=== PATIENT | male | born 1990 | race Caucasian/White ===

== ENCOUNTER 2016-12-30 02:50 | Emergency (ER) | payer OTHER ==
[~2016-12-30] VITALS: Ht 172.7 cm; Wt 81.6 kg
[2016-12-30 02:54] VITALS: BP 140/63
== END 2016-12-30 03:54 | disposition left against medical advice (07) ==
LOC: M ED 03:51
DX: Z53.29 Procedure and treatment not carried out because of patient's decision for other reasons (principal)